=== PATIENT | male | born 1950 | race Caucasian/White ===

== ENCOUNTER 2017-02-22 09:04 | Outpatient (CLI) | payer MEDICARE, OTHER ==
[2017-02-22 10:41] LABS: CALCIUM, SERUM 9.9 mg/dL (8.5-10.1); POTASSIUM 4.4 mmol/L (3.5-5.1)
== END 2017-02-22 23:59 | disposition home or self-care (01) ==
LOC: CARD 09:04
PROVIDERS: ATTEND Internal Medicine Interventional Cardiology
DX: I70.203 Unspecified atherosclerosis of native arteries of extremities, bilateral legs (principal); I10 Essential (primary) hypertension
CPT/HCPCS: 36415; 80048-TC

== ENCOUNTER 2017-02-28 10:44 | Outpatient (CLI) | payer MEDICARE | END 2017-02-28 23:59 | disposition home or self-care (01) | LOC: NM 10:44 | PROVIDERS: ATTEND Internal Medicine Interventional Cardiology | DX: I25.10 Atherosclerotic heart disease of native coronary artery without angina pectoris (principal); E11.9 Type 2 diabetes mellitus without complications | CPT/HCPCS: 78452; A9502 ==

== ENCOUNTER → 2017-03-01 | Outpatient (CLI) | payer MEDICARE ==
[~2017-03-01] MED LIST: CT SWABBABLE VALVE TRANS SET 1 EA INFUS.SET MC ONE; IOHEXOL-350 100 ML VIAL IV ONE; IV NS 0.9% 250 ML IV ONE; METOPROLOL TARTRATE INJ 5 MG/5 ML AMPUL ONE
== END ==
LOC: CT 09:42
PROVIDERS: ATTEND Internal Medicine Interventional Cardiology
DX: I25.10 Atherosclerotic heart disease of native coronary artery without angina pectoris (principal)
CPT/HCPCS: 75574; J3490; J7050; Q9967

== ENCOUNTER 2017-05-17 14:51 | Inpatient (IN) | payer MEDICARE, MEDICAID ==
[~2017-05-17] VITALS: Ht 170.2 cm; Wt 82.6 kg
--- NOTE | 2017-05-17 14:52 | NUR ---
BIB SELF C/O NUMBNES TO LEFT SIDE OF FACE/LUE AND LLE SINCE 0600, NAD NOTED, RESP EVEN AND UNLABORED. TO ER BED 4 AT BS. IV ACCESS OBTAINED, BLOOD SAMPLE TO LAB.
--- NOTE | 2017-05-17 15:03 | NUR ---
ACTIVATED CODE STOKE - PAGED TELESTROKE DOCTOR VIVIANA
[2017-05-17] MEDS ORDERED: IOHEXOL-350 100 ML VIAL IV ONE (15:11)
[2017-05-17 15:15] LABS: BASOPHILS # (AUTO) 0.1 /CMM (0.0-0.2); BASOPHILS % (AUTO) 1.1 % (0.0-2.0); EOSINOPHILS # (AUTO) 0.2 /CMM (0.0-0.7); EOSINOPHILS % (AUTO) 2.2 % (0.0-6.0); HEMATOCRIT 39 % (39-51); HEMOGLOBIN 13.1 g/dL (13.5-17.5); LYMPHOCYTES # (AUTO) 2.6 /CMM (0.8-4.8); LYMPHOCYTES % (AUTO) 28.3 % (20.0-44.0); MEAN CORPUSCULAR HEMOGLOBIN 31 PG (26.0-33.0); MEAN CORPUSCULAR HGB CONC 34 g/dl (31.0-36.0); MEAN CORPUSCULAR VOLUME 93 fL (80-96); MONOCYTES # (AUTO) 0.6 /CMM (0.1-1.30); MONOCYTES % (AUTO) 6.3 % (2.0-12.0); NEUTROPHILS # (AUTO) 5.8 /CMM (1.8-8.9); NEUTROPHILS % (AUTO) 62.1 % (43.0-81.0); PLATELET COUNT (AUTO) 164 /CMM (150-450); RDW COEFFICIENT OF VARIATION 13.2 (11.5-15.0); RED BLOOD CELL COUNT(AUTO) 4.19 MIL/uL (4.5-6.0); WHITE BLOOD COUNT (AUTO) 9.3 K/uL (4.3-11.0)
--- NOTE | 2017-05-17 15:20 | NUR ---
PT BACK TO CTSCAN. PT ON MONITOR. WAITING DIAGNOSTIC AND LAB RESULTS.
[2017-05-17 15:25] LABS: CARBON DIOXIDE 25 mmol/L (21-32); CHLORIDE 104 mmol/L (98-107); GLUCOSE 66 mg/dL (74-106); POTASSIUM 4.4 mmol/L (3.5-5.1); SODIUM SERUM 138 mmol/L (136-145); UREA NITROGEN, BLOOD 18 mg/dL (7-18)
[2017-05-17 15:30] LABS: INR 0.97 (0.85-1.15)
[2017-05-17 15:36] LABS: CHOLESTEROL 137 mg/dL (<200); HDL CHOLESTEROL 36 mg/dL (40-60); LDL 68 mg/dL (0-99); TRIGLYCERIDES 253 mg/dL (30-150)
[2017-05-17 15:58] LABS: TROPONIN I < 0.017 ng/mL (0.00-0.056)
--- NOTE | 2017-05-17 16:23 | NUR ---
PAGED EPIC FOR PANEL
--- NOTE | 2017-05-17 16:24 | NUR ---
CALLED NURSE SUP FOR TELE BED
[2017-05-17] MEDS ORDERED: ASPIRIN EC 325 MG TABLET.DR PO ONE ×2 (16:37→17:00)
[2017-05-17] MEDS ORDERED: CANA300T PO (16:52)
[2017-05-17] MEDS ORDERED: METO25TA20 PO (16:52)
[2017-05-17] MEDS ORDERED: METF1000 PO (16:52)
[2017-05-17] MEDS ORDERED: RAMI10CA32 PO (16:52)
[2017-05-17] MEDS ORDERED: INSU100V7 SQ (16:52)
[2017-05-17] MEDS ORDERED: RANO10003 PO (16:52)
[2017-05-17] MEDS ORDERED: OMEG100037 PO (16:52)
[2017-05-17] MEDS ORDERED: ISOS10TA8 PO (16:52)
[2017-05-17] MEDS ORDERED: ROSU40TA PO (16:52)
[2017-05-17] MEDS ORDERED: INSU100V27 SQ (16:52)
[2017-05-17] MEDS ORDERED: DULA0.75 SQ (16:52)
[2017-05-17] MEDS ORDERED: ASPI-1169 PO (16:52)
[2017-05-17] MEDS ORDERED: FENO48TA PO (16:52)
[2017-05-17] MEDS ORDERED: ALEN70TA3 PO (16:52)
[2017-05-17] MEDS ORDERED: ERGO500014 PO (16:52)
[2017-05-17] MEDS ORDERED: INSU300I SQ (17:13)
[2017-05-17] MEDS ORDERED: OMEP20TA20 PO (17:13)
[2017-05-17] MEDS ORDERED: INSU100V11 SQ (17:16)
[2017-05-17] MEDS ORDERED: DULA1.5P SQ (17:19)
[2017-05-17] MEDS ORDERED: BLOOD SUGAR DIAGNOSTIC 1 EACH STRIP IN SCH ×2 (17:30→18:00)
[2017-05-17] MEDS ORDERED: ENOXAPARIN SODIUM 40 MG/0.4 ML DISP.SYRIN SQ SCH (17:30)
[2017-05-17] MEDS ORDERED: DEXTROSE 50%-WATER 50 ML DISP.SYRIN IV PRN (18:00)
[2017-05-17 18:05] LABS: ALBUMIN 4.1 g/dL (3.4-5.0); BILIRUBIN,TOTAL 0.4 mg/dL (0.2-1.0); CALCIUM, SERUM 9.3 mg/dL (8.5-10.1); CREATININE 1.2 mg/dL (0.6-1.3); POTASSIUM 4.5 mmol/L (3.5-5.1); TOTAL PROTEIN, SERUM 7.2 g/dL (6.4-8.2)
[2017-05-17 18:07] LABS: THYROID STIMULATING HORMONE 2.342 uIU/mL (0.358-3.74)
--- NOTE | 2017-05-17 18:30 | NUR ---
TELE/RN OPENING NOTE PATIENT AWAKE. ALERT AND ORIENTED X4. RESPIRATION REGULAR AND UNLABORED. DENIES SOB, PAIN AT THIS TIME. RIGHT HAND G20 AND LFA G 18 PATENT. SKIN INTACT. PATIENT IN NO APPARENT DISTRESS. BED LOW AND LOCKED. SIDE RAIL UP X2. CALL LIGHT WITHIN REACH. WILL CONTINUE TO MONITOR.
--- NOTE | 2017-05-17 18:45 | NUR ---
TELE/RN CLOSING NOTE PATIENT IN BED AWAKE. ALERT AND ORIENTED X4. DENIES SOB, DENIES PAIN. IN NO APPARENT DISTRESS. BED LOW AND LOCKED. SIDE RAILS UP X2. CALL LIGHT WITHIN REACH. [facility].
[2017-05-17 18:55] VITALS: BP 127/68
--- NOTE | 2017-05-17 19:30 | NUR ---
MASTER PLANNER NOTES SR-74,RECEIVED RESTING COMFORTABLY ON BED,A/O X4.NO SOB,DENIES WEAKNESS,WITH STRONG COURTROOM DEPUTY OR CALENDAR CLERK ON BOTH HANDS.ABLE TO WALK WITH STEADY GAIT.SALINE LOCK RIGHT HAND INTACT AND PATENT.WENT DOWN TO SMOKE WITH WAIVER,ACCOMPANIED BY PETRA JOYCE.CALL LIGHT IN REACH,NEEDS ANTICIPATED.
--- NOTE | 2017-05-17 19:58 | NUR ---
TELE/RN NOTE LOVENOX AND BLOOD SUGAR CHECK NOT DONE DUE TO MISSING WRIST BAND. UPCOMING SHIFIT IS ENDORSED TO FOLLOW UP.
[2017-05-17 20:00] VITALS: BP 115/58
[2017-05-17] MEDS ORDERED: IV D5/0.45 NACL 1,000 ML IV SCH (20:00)
[2017-05-17] MEDS ORDERED: FENOFIBRATE NANOCRYS (145 MG) 145 MG TABLET PO SCH (21:30)
--- NOTE | 2017-05-17 21:30 | NUR ---
SUPERINTENDENT AUTOMOTIVE NOTES ACCU-CHECK BLOOD SUGAR CHECK 176,COVERED WITH HUMULIN R 3 UNITS PER MODERATE SLIDING SCALE.
--- NOTE | 2017-05-17 21:30 | NUR ---
FILAMENT COIL WINDER NOTES STARTED ON IVF D51/2 NS AT 75ML/HR RATE,SITE PATENT.
[2017-05-17] MEDS: BLOOD SUGAR DIAGNOSTIC 1 EACH STRIP IN SCH (21:32)
[2017-05-17] MEDS: INSULIN REGULAR, HUMAN 100 UNIT/ML 3 ML VIAL SQ PRN (21:50)
[2017-05-17 23:48] VITALS: BP 129/63
[2017-05-18] VITALS: BP 120/63
[2017-05-18 04:00] VITALS: BP 148/71
[2017-05-18] MEDS: BLOOD SUGAR DIAGNOSTIC 1 EACH STRIP IN SCH ×2 (05:19→12:19)
[2017-05-18] MEDS: INSULIN REGULAR, HUMAN 100 UNIT/ML 3 ML VIAL SQ PRN ×2 (05:23→12:22)
--- NOTE | 2017-05-18 05:30 | NUR ---
OUTDOOR PURSUITS INSTRUCTOR NOTES ACCU-CHECK BLOOD SUGAR CHECK 163,REFUSED 3 UNITS HUMULIN R THIS TIME.
[2017-05-18 06:31] LABS: BASOPHILS % (AUTO) 0.2 % (0.0-2.0); EOSINOPHILS # (AUTO) 0.1 /CMM (0.0-0.7); HEMATOCRIT 39 % (39-51); HEMOGLOBIN 13.1 g/dL (13.5-17.5); LYMPHOCYTES % (AUTO) 31.4 % (20.0-44.0); MEAN CORPUSCULAR HEMOGLOBIN 32 PG (26.0-33.0); MEAN CORPUSCULAR HGB CONC 33 g/dl (31.0-36.0); MEAN CORPUSCULAR VOLUME 96 fL (80-96); MONOCYTES # (AUTO) 0.5 /CMM (0.1-1.30); MONOCYTES % (AUTO) 7.8 % (2.0-12.0); NEUTROPHILS # (AUTO) 3.8 /CMM (1.8-8.9); NEUTROPHILS % (AUTO) 58.6 % (43.0-81.0); PLATELET COUNT (AUTO) 146 /CMM (150-450); RDW COEFFICIENT OF VARIATION 13.5 (11.5-15.0); RED BLOOD CELL COUNT(AUTO) 4.08 MIL/uL (4.5-6.0); WHITE BLOOD COUNT (AUTO) 6.4 K/uL (4.3-11.0)
--- NOTE | 2017-05-18 06:31 | NUR ---
BLANKBOOK FORWARDER NOTES FAIRLY RESTED,IVF INFUSING VIA RIGHT HAND,DENIES DISCOMFORTS,CALL LIGHT IN REACH,NEEDS ATTENDED.WILL ENDORSE TO DAY NURSE FOR JACINTO.
[2017-05-18 06:37] LABS: CREATININE 0.9 mg/dL (0.6-1.3); POTASSIUM 3.9 mmol/L (3.5-5.1)
[2017-05-18 06:44] LABS: INR 0.98 (0.87-1.13)
--- NOTE | 2017-05-18 07:00 | NUR ---
MS RN NOTES PATIENT IN BED AWAKE , ALERT ORIENTED. NO ACUTE DISTRESS NOTED. NO SOB NOTED. BREATHING EVEN AND UNLABORED. DENIED ANY PAIN AT THIS TIME. IV ACCESS PATENT AND INTACT. SAFETY MEASURES IN PLACE. WILL CONTINUE TO MONITOR ACCORDINGLY.
[2017-05-18 08:00] VITALS: BP 92/60
[2017-05-18] MEDS ORDERED: PANTOPRAZOLE 40 MG TABLET.DR PO SCH (09:00)
[2017-05-18] MEDS ORDERED: METOPROLOL TARTRATE 25 MG TABLET PO SCH (09:00)
[2017-05-18] MEDS ORDERED: ASPIRIN EC 325 MG TABLET.DR PO SCH (09:00)
[2017-05-18 10:19] VITALS: BP 97/61
[2017-05-18] MEDS ORDERED: RAMIPRIL 5 MG CAPSULE PO SCH (10:19)
--- NOTE | 2017-05-18 12:30 | NUR ---
MS RN NOTES RECEIVED CALL FROM RADIOLOGY REGARDING MRI RESULT CALLED DR NAVA AND MADE AWARE WITH NO NEW ORDERS MADE.
--- NOTE | 2017-05-18 14:32 | NUR ---
Social service consult requested by Dr. Manning for CVA. Pt. is a 66 year old male who was admitted to [facility] for CVA. SW met with pt. bedside for an assessment. Pt. is alert and oriented x 4. Pt. informed SW he was out fishing when his left arm and left leg began feeling numb. Pt. states this is the first time he has experienced the numbness. Pt. has a history of insulin dependent diabetes and hypertension. Pt. resides with his Mame in their apartment located at [address] [place] [address], in [place]. [place]. Pt's emergency contact is Mame . Pt. states he was independent with his ADL's prior to this incident and continues to be independent as of now. Pt. has been seen by physical therapy, Cardiology and Neurologist to rule out CVA. No other social service needs are requested at this time. SW is available if needed.
--- NOTE | 2017-05-18 16:50 | NUR ---
MS RN NOTES RESIDENT VERBALIZES HE WANTS TO GO HOME, DR NAVA MADE AWARE DID NOT GIVE DISCHARGE PATIENT NEEDS TO BE CLEARED BY NEUROLOGIST. PATIENT INSIST ON GOING HOME. HE SAID HE WILL FOLLOW UP WITH HIS OWN NEUROLOGIST. EXPLAINED RISK AND BENEFITS. PATIENT SIGNED DISCHARGED AGAINST MEDICAL ADVICE. ALL BELONGINGS ACCOUNTED FOR. DISCHARGE INSTRUCTIONS GIVEN TO THE PATIENT. WHEELED TO THE LOBBY BY RN AND INTELLIGENCE SENIOR SERGEANT ACCOMPANIED BY SON ASSISTED TO A PRIVATE CAR. DISCHARGED IN STABLE CONDITION. IV ACCESS REMOVED, NO S/SX OF BLEEDING.
[2017-05-18] MEDS ORDERED: Ranolazine (Ranexa) 1,000 MG PO SCH (17:00)
--- NOTE | 2017-05-18 20:26 | NUR ---
AMA INCIDENT REPORT DONE [id number]
[2017-05-19] MEDS ORDERED: ATORVASTATIN 40 MG TABLET PO SCH (18:00)
== END 2017-05-18 17:00 | disposition left against medical advice (07) | DRG 64 ==
LOC: ER 15:01 → TELE 17:40 → MED 05-18 09:26
PROVIDERS: ADMIT Internal Medicine; ATTEND Internal Medicine
DX: I63.9 Cerebral infarction, unspecified (principal); N17.0 Acute kidney failure with tubular necrosis; I10 Essential (primary) hypertension; D63.8 Anemia in other chronic diseases classified elsewhere; E11.649 Type 2 diabetes mellitus with hypoglycemia without coma; F17.210 Nicotine dependence, cigarettes, uncomplicated; I25.10 Atherosclerotic heart disease of native coronary artery without angina pectoris; Z79.4 Long term (current) use of insulin
CPT/HCPCS: 36415; 70450-TC; 70496-TC; 70498-TC; 70551-TC; 71045-TC; 80048-TC; 80053-TC; 80061-TC; 82962-TC; 83880; 84443-TC; 84484-TC; 85025-TC; 85652-TC; 85730-TC; 87081-TC; 92611-TC; 93307-TC; 93880-TC; A4606; J1650; J1815; J3490; Q9967; Z7610

== ENCOUNTER 2017-06-20 10:53 | Outpatient (CLI) | payer MEDICARE, MEDICAID ==
[~2017-06-20 10:53] MED LIST changes: +ALEN70TA3 PO; +ASPI-1169 PO; +CANA300T PO; -CT SWABBABLE VALVE TRANS SET 1 EA INFUS.SET MC ONE; +DULA1.5P SQ; +ERGO500014 PO; +FENO48TA PO; +INSU100V11 SQ; +INSU300I SQ; -IOHEXOL-350 100 ML VIAL IV ONE; +ISOS10TA8 PO; -IV NS 0.9% 250 ML IV ONE; +METF1000 PO; +METO25TA20 PO; -METOPROLOL TARTRATE INJ 5 MG/5 ML AMPUL ONE; +OMEG100037 PO; +OMEP20TA20 PO; +RAMI10CA32 PO; +RANO10003 PO; +ROSU40TA PO
== END 2017-06-20 23:59 | disposition home or self-care (01) ==
LOC: CARD 10:53
PROVIDERS: ATTEND Internal Medicine Interventional Cardiology
DX: I70.203 Unspecified atherosclerosis of native arteries of extremities, bilateral legs (principal)

== ENCOUNTER 2017-12-08 13:37 | Inpatient (IN) | payer MEDICARE, MEDICAID ==
[~2017-12-08] VITALS: Ht 170.2 cm; Wt 81.6 kg
--- NOTE | 2017-12-08 13:40 | NUR ---
PT AMBULATORY TO ER BED 11 ACCOMPANIED BY FAMILY. PT IS C/O TONGUE NUMB SENSATION FOR 2 DAYS NOW. PT'S FAMILY ENDORSED THAT PT IS MORE LETHARGIC. HX OF TIA IN 05/28. PT IS AAOX4. NO NEURO DEFICIT NOTED AT THIS TIME. GOWNED AND PLACED ON MONITOR. VSS. AWAITING MD LINO.
--- NOTE | 2017-12-08 13:50 | NUR ---
BARRINGTON GILLIS AT BEDSIDE FOR EVAL.
--- NOTE | 2017-12-08 14:10 | NUR ---
PT TO RADIOLOGY FOR HEAD CT SCAN VIA [facility].
[2017-12-08 14:15] LABS: BASOPHILS # (AUTO) 0.1 /CMM (0.0-0.2); BASOPHILS % (AUTO) 1.2 % (0.0-2.0); EOSINOPHILS % (AUTO) 1.4 % (0.0-6.0); HEMATOCRIT 41 % (39-51); HEMOGLOBIN 13.9 g/dL (13.5-17.5); LYMPHOCYTES # (AUTO) 2.1 /CMM (0.8-4.8); LYMPHOCYTES % (AUTO) 23.1 % (20.0-44.0); MEAN CORPUSCULAR HEMOGLOBIN 32 PG (26.0-33.0); MEAN CORPUSCULAR HGB CONC 34 g/dl (31.0-36.0); MEAN CORPUSCULAR VOLUME 96 fL (80-96); MONOCYTES # (AUTO) 0.4 /CMM (0.1-1.30); MONOCYTES % (AUTO) 4.6 % (2.0-12.0); NEUTROPHILS # (AUTO) 6.4 /CMM (1.8-8.9); NEUTROPHILS % (AUTO) 69.7 % (43.0-81.0); PLATELET COUNT (AUTO) 172 /CMM (150-450); RDW COEFFICIENT OF VARIATION 12.2 (11.5-15.0); RED BLOOD CELL COUNT(AUTO) 4.29 MIL/uL (4.5-6.0); WHITE BLOOD COUNT (AUTO) 9.1 K/uL (4.3-11.0)
[2017-12-08] MEDS ORDERED: ATOR40TA PO (14:20)
[2017-12-08] MEDS ORDERED: PYRI50TA9 PO (14:20)
[2017-12-08] MEDS ORDERED: EZET10TA27 PO (14:20)
[2017-12-08] MEDS ORDERED: BLOO-668 IN (14:20)
[2017-12-08] MEDS ORDERED: RAMI5CAP PO (14:20)
[2017-12-08] MEDS ORDERED: AMIT10TA6 PO (14:20)
[2017-12-08] MEDS ORDERED: INSU100I4 SQ (14:20)
[2017-12-08 14:25] LABS: CALCIUM, SERUM 9.5 mg/dL (8.5-10.1); CARBON DIOXIDE 27 mmol/L (21-32); CHLORIDE 102 mmol/L (98-107); GLUCOSE 257 mg/dL (74-106); POTASSIUM 4.1 mmol/L (3.5-5.1); SODIUM SERUM 138 mmol/L (136-145); UREA NITROGEN, BLOOD 14 mg/dL (7-18)
[2017-12-08 14:28] LABS: INR 0.98 (0.85-1.15)
[2017-12-08 14:30] LABS: ALANINE AMINOTRANSFERASE 37 U/L (12-78); ALBUMIN 3.7 g/dL (3.4-5.0); ALKALINE PHOSPHATASE 100 U/L (46-116); ASPARTATE AMINOTRANSFERASE 25 U/L (15-37); BILIRUBIN,DIRECT 0.1 mg/dL (0.0-0.2); BILIRUBIN,TOTAL 0.3 mg/dL (0.2-1.0)
[2017-12-08] MEDS ORDERED: IV NS 0.9% 500 ML BAG IV ONE ×2 (14:30→16:00)
[2017-12-08 14:33] LABS: TROPONIN I < 0.017 ng/mL (0.00-0.056)
[2017-12-08 16:00] VITALS: BP 115/61
--- NOTE | 2017-12-08 16:00 | NUR ---
TELE/RN OPENING NOTE PATIENT IS RECEIVED ON A GURNEY. PATIENT ALERT AND ORIENTED X4. DENIES SOB. RESPIRATION EVEN AND UNLABORED. DENIES PAIN. PATIENT IN ROOM. NIHSS ASSESSMENT DONE AND NO ABNORMALITIES NOTED. PATIENT HAS STABLE GAIT. PATIENT REFUSED SKIN ASSESSMENT STATING " I DON`T HAVE ANY SKIN PROBLEMS, I AM FINE. RIGHT FOREARM G 20 PATENT AND SALINE LOCKED. BED LOW AND LOCKED. SIDE RAILS UP X2. CALL LIGHT WITHIN REACH. WILL CONTINUE TO MONITOR.
--- NOTE | 2017-12-08 16:20 | NUR ---
TELE/RN NOTE PATIENT HAS $343 MURCIA WITH HIM. THE PATIENT WAS ENCOURAGED TO SEND THE MONEY HOME WITH BUT THE PATIENT REFUSED. THE PATIENT WAS ENCOURAGED TO HAND THE MONEY FOR SAFETY KEEP, EXPLAINED RISKS AND BENEFITS BUT THE PATIENT REFUSED TO HAND THE MONEY AND SAID " NOTHING WILL HAPPEN, I WANT TO KEEP IT WITH ME."
--- NOTE | 2017-12-08 16:32 | NUR ---
PT TRANSFERED TO FLOOR IN STABLE CONDITION. REPORT WAS GIVEN TO CHU CONNELLY.
[2017-12-08] MEDS ORDERED: MAG HYDROX/AL HYDROX/SIMETH 30 ML UDC PO PRN (17:30)
[2017-12-08] MEDS ORDERED: DEXTROSE 50%-WATER 50 ML DISP.SYRIN IV PRN (17:30)
[2017-12-08] MEDS ORDERED: MAGNESIUM HYDROXIDE 30 ML UDC PO PRN (17:30)
[2017-12-08] MEDS ORDERED: ZOLPIDEM TARTRATE 5 MG TABLET PO PRN (17:30)
[2017-12-08] MEDS ORDERED: ACETAMINOPHEN 325 MG TABLET PO PRN (17:30)
[2017-12-08] MEDS ORDERED: HYDROCODONE/APAP 5/325MG 1 EACH TABLET PO PRN (17:30)
[2017-12-08] MEDS ORDERED: ONDANSETRON HCL/PF 4 MG/2 ML VIAL IVP PRN (17:30)
--- NOTE | 2017-12-08 17:46 | NUR ---
TELE/RN NOTE BLOOD SUGAR 259 AND THE PATIENT REFUSED REGULAR INSULIN ADMINISTERED PER SLIDING SCALE.
--- NOTE | 2017-12-08 18:07 | NUR ---
TELE/RN NOTE RECEIVED DIET ORDER FROM MACY AARON FOR 12/08/17 DINNER. THE ORDER READ BACK, VERIFIED. NOTED AND CARRIED OUT.
[2017-12-08] MEDS: BLOOD SUGAR DIAGNOSTIC 1 EACH STRIP IN SCH ×2 (18:17→21:33)
[2017-12-08] MEDS: FENOFIBRATE NANOCRYS (145 MG) 145 MG TABLET PO SCH (18:23)
--- NOTE | 2017-12-08 18:33 | NUR ---
TELE/RN CLOSING NOTE PATIENT ALERT AND ORIENTED X4. DENIES SOB. PATIENT IS IN ROOM AIR. RESPIRATION REGULAR AND UNLABORED. DENIES PAIN. TELE MONITOR BOX IS ON AND READING IS SR 79. PATIENT IN NO APPARENT DISTRESS. NIHSS ASSESSMENT NORMAL. PATIENT IN NO APPARENT DISTRESS. NO DRIFTS. PATIENT NOTED HAS STABLE GAIT. RFA G 20 PATENT AND SALINE LOCKED. GOOD AND GENTLE SKIN CARE RENDERED. BED LOW AND LOCKED. SIDE RAILS UP X3. CALL LIGHT WITHIN REACH. WILL ENDORSE TO HEALTH PROMOTION OFFICER.
--- NOTE | 2017-12-08 18:35 | NUR ---
TELE/RN NOTE PATIENT`S 2 INSULIN MEDICATIONS FROM THE PATIENT PER PATIENT AGREEMENT AND KEPT IN THE SAFE.
--- NOTE | 2017-12-08 19:20 | NUR ---
TELE/RN OPENING NOTE RECEIVED PATIENT RESTING IN BED, ALERT AND ORIENTED X 4. DENIES SOB. RESPIRATION EVEN AND UNLABORED. DENIES ANY PAIN @ THIS TIME. PATIENT IN ROOM. NIHSS ASSESSMENT DONE AND NO ABNORMALITIES NOTED. AMBULATORY & HAS STABLE GAIT. IV ACCESS TO RIGHT FOREARM G 20 PATENT AND SALINE LOCKED. WANTS TO GO SMOKE. WILL F/U WITH MD IF PT IS OK TO SMOKE. BED LOW AND LOCKED. SIDE RAILS UP X 2. CALL LIGHT WITHIN REACH. WILL CONTINUE TO MONITOR.
[2017-12-08 20:00] VITALS: BP 122/69
--- NOTE | 2017-12-08 20:10 | NUR ---
DROP BOARD MAN NOTE MICHELLE AARON NP OKAYED FOR THE PATIENT TO SMOKE, PT STATED IF MD WOULD NOT ALLOW HIM TO SMOKE, HE WILL LEAVE THE HOSPITAL AMA. NICOTINE PATCH WAS OFFERED BUT PT REFUSED. SMOKING CONSENT WAS SIGNED. PT WENT FOR SMOKING WITH ACCOUNT PROCESSOR. WILL CONTINUE TO MONITOR CLOSELY FOR JACINTO.
--- NOTE | 2017-12-08 20:25 | NUR ---
BATCH PLANT OPERATOR NOTE PT CAME BACK & VERBALIZED THAT HE IS FEELING MUCH BETTER AFTER SMOKING & WILL TRY TO REST & GO TO SLEEP.
[2017-12-08] MEDS ORDERED: ATORVASTATIN 40 MG TABLET PO SCH (22:00)
[2017-12-08] MEDS ORDERED: EZETIMIBE 10 MG TABLET PO SCH (22:00)
[2017-12-08] MEDS ORDERED: AMITRIPTYLINE HCL 10 MG TABLET PO SCH (22:00)
[2017-12-08] MEDS ORDERED: INSULIN GLARGINE, 100 UNIT/ML CARTRIDGE SQ SCH (22:00)
[2017-12-08] MEDS ORDERED: AMITRIPTYLINE HCL 25 MG TABLET ONE (22:40)
[2017-12-08] MEDS: INSULIN REGULAR, HUMAN 100 UNIT/ML 3 ML VIAL SQ PRN (23:03)
--- NOTE | 2017-12-08 23:04 | NUR ---
REFUSED REGULAR INSULIN PT REFUSED TO TAKE REGULAR INSULIN ORDERED PER PROTOCOL, STATED HE TOOK LANTUS & HE DOES NOT WANT TO TAKE SHORT ACTING NOW. PT HAD SNACK @ THIS TIME. WILL MONITOR CLOSELY.
--- NOTE | 2017-12-08 23:41 | NUR ---
PRN AMBIEN GIVEN PT REQUESTED TO TAKE AMBIEN FOR SLEEPLESSNESS. PRN AMBIEN GIVEN. WILL REASSESS FOR EFFECTIVENESS.
[2017-12-09] VITALS: BP 125/72
[2017-12-09] MEDS ORDERED: INSULIN GLARGINE, 100 UNIT/ML CARTRIDGE SQ ONE (00:01)
[2017-12-09 06:40] LABS: BASOPHILS % (AUTO) 0.4 % (0.0-2.0); EOSINOPHILS % (AUTO) 2.9 % (0.0-6.0); HEMATOCRIT 42 % (39-51); HEMOGLOBIN 13.2 g/dL (13.5-17.5); LYMPHOCYTES # (AUTO) 2.4 /CMM (0.8-4.8); MEAN CORPUSCULAR HEMOGLOBIN 31 PG (26.0-33.0); MEAN CORPUSCULAR HGB CONC 31 g/dl (31.0-36.0); MEAN CORPUSCULAR VOLUME 100 fL (80-96); MONOCYTES # (AUTO) 0.4 /CMM (0.1-1.30); NEUTROPHILS # (AUTO) 5.1 /CMM (1.8-8.9); NEUTROPHILS % (AUTO) 62.7 % (43.0-81.0); PLATELET COUNT (AUTO) 152 /CMM (150-450); RDW COEFFICIENT OF VARIATION 13.1 (11.5-15.0); RED BLOOD CELL COUNT(AUTO) 4.21 MIL/uL (4.5-6.0); WHITE BLOOD COUNT (AUTO) 8.1 K/uL (4.3-11.0)
--- NOTE | 2017-12-09 07:00 | NUR ---
TELE/RN CLOSING NOTE PT SLEPT WELL @ NIGHT AFTER TAKING AMBIEN. ALERT AND ORIENTED X 4. DENIES SOB. RESPIRATION EVEN AND UNLABORED. DENIES ANY PAIN @ THIS TIME. PATIENT IN ROOM. NIHSS ASSESSMENT DONE AND NO ABNORMALITIES NOTED. ON TELE MONITORING WITH SR 74. AMBULATORY & HAS STABLE GAIT. BRP. IV ACCESS TO RIGHT FOREARM G 20 PATENT AND SALINE LOCKED. BED LOW AND LOCKED. SIDE RAILS UP X 2. CALL LIGHT WITHIN REACH. WILL ENDORSE TO AM RN FOR CONTINUITY OF CARE.
[2017-12-09] MEDS: BLOOD SUGAR DIAGNOSTIC 1 EACH STRIP IN SCH ×3 (07:01→17:40)
[2017-12-09 07:14] LABS: CALCIUM, SERUM 8.7 mg/dL (8.5-10.1); CREATININE 1.1 mg/dL (0.6-1.3); MAGNESIUM 2.1 mg/dL (1.8-2.4); PHOSPHORUS 4.3 mg/dL (2.5-4.9)
[2017-12-09] MEDS ORDERED: PANTOPRAZOLE 40 MG TABLET.DR PO SCH (07:30)
[2017-12-09 08:00] VITALS: BP 109/56
[2017-12-09] MEDS ORDERED: ASPIRIN 81 MG TAB.CHEW PO SCH (09:00)
[2017-12-09] MEDS ORDERED: PYRIDOXINE HCL 50 MG TABLET PO SCH (09:00)
[2017-12-09] MEDS ORDERED: RAMIPRIL 5 MG CAPSULE PO SCH (09:00)
[2017-12-09 12:00] VITALS: BP 146/77
[2017-12-09] MEDS: INSULIN REGULAR, HUMAN 100 UNIT/ML 3 ML VIAL SQ PRN ×2 (13:41→18:16)
[2017-12-09 16:00] VITALS: BP 136/72
[2017-12-09] MEDS: FENOFIBRATE NANOCRYS (145 MG) 145 MG TABLET PO SCH (17:40)
--- NOTE | 2017-12-09 19:30 | NUR ---
trade union official light multiple times with request to smoke,although advised against this.anxious,awaiting for neurologist,so at this time arsalan harper dc'marian pt. as dr. cunha not here.pt. states and ausitn informed states has small amt. of numbness at back of tongue with slight problem with taste of coffee.dc order given received home med lantus.rest of belongings with pt. tele and hep lock removed.aware to follow up with neuro,internal med md as well as dietary and air pollution auditor.taken to lobby by reservoir engineer,pt. walked to lobby.
[2017-12-12] MEDS ORDERED: ALENDRONATE 70 MG TABLET PO SCH (07:30)
== END 2017-12-09 19:20 | disposition home or self-care (01) | DRG 92 ==
LOC: ER 13:39 → TELE 15:53
PROVIDERS: ADMIT Nurse Practitioner Acute Care; ATTEND Nurse Practitioner Acute Care
DX: R20.0 Anesthesia of skin (principal); E44.1 Mild protein-calorie malnutrition; E66.9 Obesity, unspecified; E78.5 Hyperlipidemia, unspecified; I10 Essential (primary) hypertension; I25.10 Atherosclerotic heart disease of native coronary artery without angina pectoris; Z86.73 Personal history of transient ischemic attack (TIA), and cerebral infarction without residual deficits; F17.210 Nicotine dependence, cigarettes, uncomplicated; E11.9 Type 2 diabetes mellitus without complications; Z79.4 Long term (current) use of insulin; Z79.82 Long term (current) use of aspirin; R43.2 Parageusia; E88.81 Metabolic syndrome and other insulin resistance; Z68.28 Body mass index [BMI] 28.0-28.9, adult
CPT/HCPCS: 36415; 70450-TC; 71045-TC; 80048-TC; 80061-TC; 80076-TC; 82962-TC; 83735-TC; 84100-TC; 84484-TC; 85025-TC; 85730-TC; 87081-TC; A4606; J1815; J7040; Z7610